=== PATIENT | male | born 1980 | race Two or more races ===

== ENCOUNTER 2021-01-11 04:59 | Emergency (ER) | payer SELFPAY ==
[~2021-01-11] VITALS: Ht 172.7 cm; Wt 61.2 kg
--- NOTE | 2021-01-11 05:51 | NUR ---
Patient walked in came from home. Steady gait. No neurological deficits noted. No SOB or labored breathing. Clear speech, complete sentences. All pulses palpable, no edema, denies palpitation or any c/o chest discomfort/pain.Denies any abd pain/discomfort. Denies any GI/ distress, no dysuria/pyuria/hematuria. Patient came in with complain of wound drainage on BLE, no c/o pain or itching verbalized. No c/o
--- NOTE | 2021-01-11 05:55 | NUR ---
Dr. Child at bedside for MSE in room 5A.
[2021-01-11] MEDS ORDERED: SULFAMETH/TRIMETH 800/160 MG TABLET PO ONE (06:00)
[2021-01-11] MEDS ORDERED: SULF1TAB48 PO (06:03)
[2021-01-11] MEDS ORDERED: SULFAMETH/TRIMETH 800/160 MG TABLET ONE (06:05)
--- NOTE | 2021-01-11 06:27 | NUR ---
Patient discharged to home in stable condition. Written and verbal after care instructions given. Patient verbalizes understanding of instructions. Stressed follow up or return to ER for worsening s/s. Patient has no c/o of pain or discomfort regaurding BLE wound. No SOB or labored breathing, n changes in LOC A/O x4. Steady gait.
[2021-01-11 06:28] VITALS: BP 146/82
== END 2021-01-11 06:29 | disposition home or self-care (01) ==
LOC: ER 05:08
DX: L97.929 Non-pressure chronic ulcer of unspecified part of left lower leg with unspecified severity (principal); L97.919 Non-pressure chronic ulcer of unspecified part of right lower leg with unspecified severity
CPT/HCPCS: 87070; 87077; A4663